=== PATIENT | female | born 1985 | race Caucasian/White ===

== ENCOUNTER 2017-01-01 02:26 | Inpatient (IN) ==
[~2017-01-01 02:26] MED LIST: *HR* Nalbuphine 20 MG/ML AMPUL IVP PRN; Famotidine 20 MG/2 ML VIAL IVP PRN; Lidocaine 1% 20 ML MDV INFILT PRN; Naloxone 0.4 MG/ML INJ IVP PRN
[2017-01-01] MEDS ORDERED: Ringers Solution, Lactated 1,000 ML IVC SCH (02:30)
--- NOTE | 2017-01-01 02:35 | OB/GYN History & Physical ---
Date of Encounter: 01/01/17 Time of Encounter: 02:31 Assessment and Plan (1) 40 weeks gestation of Current visit: Yes Status: Acute Admit to labor and delivery for labor Routine labor management GBS negative Intermittent monitoring after reactive NST if patient requests and per policy Patient may have nubain and/or epidural if requested for pain Anticipate vaginal delivery POC per consult with Dr Guevara. History of Present Illness Chief complaint: Contractions HPI: Ms. Zuniga is a 31 year old at 40 weeks and 3 days gestation that arrives to labor and delivery with c/o contractions every 2-3 minutes. She states she has not felt a gush of fluid. She states positive movement. She denies headaches, vision changes, epigastric pain, nausea/vomiting, and vaginal bleeding/discharge. She has had a normal course and is seen by the midwives. Her labs are as follows: GBS negative HIV nonreactive Treponema Pallidum Antibody Negative Rubella IgG Antibody positive Varicella IgG Antibody positive Hepatitis B Surface Antigen nonreactive Blood Type A positive with negative antibody screen. Past Med Surg Social Fam HX - Past Medical History Medical history: no medical history Psychiatric history: no psych history - Social History Smoking Status: Never smoker Alcohol use: none Drug use: none Obstetrical History - Pregnancies : 3 Para: 1 Term: 1 : 0 Ab's: 1 Livin [facility]ations and [facility]ies [facility] [History] 3 Allergy/AdvReac Type Severity Reaction Status Date / Time [facility] Allergy Rash Verified 01/01/17 02:19 pseudoephedrine [From [facility]] Allergy Rash Verified 01/01/17 02:19 Review of System OB All systems PM: reviewed and no additional remarkable complaints except as stated Exam - Constitutional Constitutional: well developed, well nourished, no acute distress, average body habitus - HEENT HEENT: Normocephaly, Mucus Membranes Moist - Neck Neck exam: full ROM - Lungs Respiratory exam: CTAB - Cardiovascular Cardiovascular exam: RRR, +S1, +S2 - Breasts Breast: bilateral: normal - Abdomen Abdomen: Present: bowel sounds normal, gravid, non tender - Extremities Extremities exam: normal capillary refill, normal inspection, radial pulses palpable and symmetrical Deep Tendon Reflex Grade: 1+ Diminished - Vulva Vulva: bilateral: normal - Vagina Vagina: Present: normal moisture - Cervix Dilation: 5 (5-6 per RN exam) Effacement: 90 Station: -1 - Uterus Uterus exam: Present: normal size, normal contour Results Result Diagrams: 01/01/17 02:39 All other labs normal. - VTE Reasons for not Prescribing Prophylaxis: Treatment not Indicated - Low risk for VTE
[2017-01-01 02:51] LABS: Basophils % 0.5 %; Eosinophils % 0.5 %; Hemoglobin 11.7 g/dL (11.5-15.4); Immature Granulocytes % 0.5 % (0-4); Lymphocytes # 1.4 K/mcL (0.6-4.6); Lymphocytes % 21.5 %; Mean Corpuscular HGB Conc 33.4 g/dL (31.6-35.5); Mean Corpuscular Hemoglobin 30.5 pg (28.0-33.3); Mean Corpuscular Volume 91.1 fL (83.0-100.0); Mean Platelet Volume 10.4 fL (9.4-12.4); Monocytes # 0.4 K/mcL (0.0-1.3); Monocytes % 6.6 %; Neutrophils # 4.5 K/mcL (1.6-8.9); Platelet Count 186 K/mcL (140-400); Red Blood Count 3.84 M/mcL (3.82-4.97); Red Cell Distribution Width 13.2 % (11.5-14.5); Segmented Neutrophils % 70.4 %
[2017-01-01 02:59] LABS: Amphetamine Screen,Urine Negative ng/mL (Cutoff=1000); Barbiturate Screen,Urine Negative ng/mL (Cutoff=200); Benzodiazepines Screen,Urine Negative ng/mL (Cutoff=200); Cannabinoid Screen,Urine Negative ng/mL (Cutoff = 50); Cocaine Screen,Urine Negative ng/mL (Cutoff= 300); Opiate Screen,Urine Negative ng/mL (Cutoff=300); Phencyclidine Screen,Urine Negative ng/mL (Cutoff=25)
[2017-01-01] MEDS ORDERED: Epidural Premix (fent/bupiv) 110 ML EP ONE (03:17)
--- NOTE | 2017-01-01 03:49 | Anesthesia Evaluation PreOp ---
Date of Encounter: 01/01/17 Time of Encounter: 03:46 - Past History Planned Operation: vaginal del, , term , spont Cardiac History: Denies any Significant Hx Pulmonary History: Denies Any Significant HX ARMATURE AND ROTOR WINDER History: Denies Any Significant HX Other Medical History: Denies Any Significant HX Anesthesia History: No Prior Anesthetic Complications (no family Hx), Past Anesthesia (previous epidural) : Yes (term) Alcohol Use: none Drug use: none Medications and Allergies Flintstones 01/01/17 [History] 3 Allergy/AdvReac Type Severity Reaction Status Date / Time Carbinoxamine [From [facility]] Allergy Rash Verified 01/01/17 02:19 pseudoephedrine [From [facility]] Allergy Rash Verified 01/01/17 02:19 Anesthesia Results - Labs 01/01/17 02:39 Anesthesia Exam - HEENT Pupil (Motor): Pupils equal Mallampati: II Teeth: Normal Oral Opening: Greater than 3 - ARMATURE AND ROTOR WINDER LOC: Oriented ARMATURE AND ROTOR WINDER Motor: Normal RUE, Normal LUE, Normal RLE, Normal LLE, Normal Face ARMATURE AND ROTOR WINDER Sensory: Normal: RUE, LUE, RLE, LLE, Face - Cardiac Rhythm: Regular Murmur: None - Pulmonary Breath Sounds: bilateral Clear Respiratory Effort: Symmetrical Anesthesia Assess/Plan ASA Score: 2 Modified Иван Scale for Level of Consciousness: Cooperative, oriented, and tranquil Anesthetic Plan: General, Regional (patient unsure about wanting regional anesthesia at this time.) Monitoring Plan: Standard Monitors Recovery Plan: PACU
--- NOTE | 2017-01-01 06:37 | OB Labor Progress Note ---
Date of Encounter: 01/01/17 Time of Encounter: 06:24 Labor Progress Note - Subjective Subjective: Patient in bed breathing through contractions. - Vital Signs Vital Signs: VSS - Cervix Cervix: 7-8/100/-1 BBOW midposition - Heart Tones Heart Tones: 130 with moderate variability and 15 x 15 accels with no decels - [place]: Contractions every 2-4 minutes - Plan Plan: Continue routine labor management Patient requests epidural prior to AROM Anticipate vaginal delivery
--- NOTE | 2017-01-01 07:01 | Anesthesia Procedures ---
Date of Encounter: 01/01/17 Time of Encounter: 06:43 Procedures: Anesthesia - Epidural/Spinal Patient ID/Chart reviewed: Yes Patient examined: Yes OB Eval: Gestational age: term OB Eval: : 2 OB Eval: Hx Para: 1 OB Eval: Dilated at (cm): 7 OB Eval: Contractions: Non-stressed pattern Consent Obtained: Yes Supplemental Oxygen: None/Room Air Site Prep: Aseptic Technique, Sterile prep and drape, 0.5% Chlorhexidine/Alcohol Patient position: upright Local Anesthetic: Lidocaine 1% Amount of Local Anesthetic used: 2 Touhy Needle Gauge: 18 Touhy Needle Depth (cm): 7 Catheter Depth at Skin (cm): 11 Test Dose (1.5% Lido + Epi): Volume given (mls): 3 Test Dose Result: Negative Loading Dose: Other: 12ml from solution Loading Dose Administered: Thru Catheter Infusion Med: 0.125% Bupivacaine w/ 2 mcg/ml Fentanyl Infusion Rate (mls/hr): [address]: Tegaderm, Tape Interspace Used: L3-L4 Loss of Resistance (KATERYNA): Yes (saline) Blood: No CSF: No Paresthesia: No Procedure: vss though out, FHR stable per RN's
[2017-01-01] MEDS ORDERED: Oxytocin 20 units/ LR 1000 mL 20 UNIT/1,000 ML BAG IVC ONE (07:43)
--- NOTE | 2017-01-01 07:45 | OB Labor Progress Note ---
Date of Encounter: 01/01/17 Time of Encounter: 07:41 Labor Progress Note - Subjective Subjective: Patient in resting comfortably in bed with epidural in place. - Vital Signs Vital Signs: VSS - Cervix Cervix: 8-9/100/0 BBOW - Heart Tones Heart Tones: 140's with moderate variability with 15 x 15 accels and no decels. - [place]le[place] Delevan: Contractions every 2-4 minutes palpate firm - Interventions Interventions: AROM for moderate amount of particulate meconium stained fluid. Patient and fetus tolerated well. After rupture cervix 9/100/0 - Plan Plan: Continue routine labor management GBS negative Anticipate vaginal delivery POC per consult with Dr Guevara.
[2017-01-01] MEDS ORDERED: Lidocaine 1% 20 ML MDV ONE (08:51)
--- NOTE | 2017-01-01 09:18 | OB/GYN Procedure Note ---
Delivery - Delivery Date: 01/01/17 Provider: Gladis Saucedo (Martha Clarke [facility]) Intrapartum events: meconium Delivery induction: none Delivery augmentation: rupture of membranes Delivery monitor: external FHT, external uterine Anesthesia: epidural Estimated Blood Loss: 300 - (s) A Delivery Date: 01/01/17 Delivery Time: 08:50 Presentation: vertex Position: CICI Route of delivery: Gender: Male Viability: Viable Pounds: 9 Ounces: 6 Weight Gram: 4.245 kg at 1 minute: 9 at 5 mins: 9 Shoulder Dystocia: not encountered Specimens collected: cord blood Placenta: spontaneous Cord: 3 umbilical vessels - Repair Episiotomy: none Laceration Description: Perineal - 2nd Degree - Complications Delivery complications: none Delivery comments: Called to LDR patient feeling contractions. Patient was complete and +2 station. Patient was placed in stirrups and prepped for vaginal delivery. Under maternal effort, viable male infant delivered spontaneously over 2nd degree laceration. Repaired with 3-0 Vicryl. [place] to mother's abdomen for drying and stimulation. Immediate lusty cry noted. Cord clamped and cut after pulsation ceased. Spontaneous delivery of intact placenta. EBL 300 mL. No shoulder dystocia or nuchal cord was encountered. Particulate meconium was noted with AROM. All counts complete. Mother and stable in room for 2 hour recovery. - Disposition Mom disposition: stable in LDR [place] disposition: stable in LDR
[2017-01-01] MEDS ORDERED: Oxytocin 20 units/ LR 1000 mL 20 UNIT/1,000 ML BAG IVC SCH (11:29)
[2017-01-01] MEDS ORDERED: Benzocaine/Menthol 56 GM AEROSOL SPRAY TP PRN (11:29)
[2017-01-01] MEDS ORDERED: *HR* HYDROcodone/Acet 5/325 mg TABLET PO PRN (11:29)
[2017-01-01] MEDS ORDERED: Lanolin 7 G OINT...G. TP PRN (11:29)
[2017-01-01] MEDS ORDERED: Acetaminophen 325 MG TABLET PO PRN (11:29)
[2017-01-01] MEDS: Ibuprofen 600 MG TABLET PO PRN (21:24)
[2017-01-02] MEDS: Ibuprofen 600 MG TABLET PO PRN (03:44)
[2017-01-02 08:06] VITALS: BP 107/67
[2017-01-02] MEDS ORDERED: Prenatal Vit/FA 1 EACH TABLET PO SCH (09:00)
--- NOTE | 2017-01-02 10:07 | Discharge Summary ---
Date of Encounter: 01/02/17 Time of Encounter: 10:05 - Discharge Diagnosis (1) Vaginal delivery Priority: Primary Status: Acute Comments: Pt meeting all milestones. Pain well managed on po pain medication. . desires discharge - Discharge Medications Prescriptions: Ibuprofen [Motrin] 600 mg PO Q6HR PRN #60 tablet PRN Reason: Cramping Docusate [Colace] 100 mg PO BID #60 capsule Home Medications: Flintstones 01/01/17 [History] Acetaminophen [Tylenol] 650 mg PO Q6HR PRN tablet 01/02/17 [Rx] Benzocaine/Menthol [place] [Dermoplast [place]] 1 appl TP QID PRN aerosol 01/02/17 [Rx] Docusate [Colace] 100 mg PO BID #60 capsule 01/02/17 [Rx] Ibuprofen [Motrin] 600 mg PO Q6HR PRN #60 tablet 01/02/17 [Rx] Lanolin [Lansinoh] 1 appl TP TID PRN oint...g. 01/02/17 [Rx] Vit/FA 1 each PO DAILY tablet 01/02/17 [Rx] Allergies/Adverse Reactions: 3 Allergy/AdvReac Type Severity Reaction Status Date / Time Carbinoxamine [From [facility]] Allergy Rash Verified 01/01/17 02:19 pseudoephedrine [From [facility]] Allergy Rash Verified 01/01/17 02:19 Data Procedures and tests throughout hospitalization: Laboratory Tests 01/01/17 01/01/17 02:39 02:39 WBC 6.4 RBC 3.84 Hgb 11.7 Hct 35.0 L MCV 91.1 MCH 30.5 MCHC 33.4 RDW 13.2 Plt Count 186 MPV 10.4 Immature Gran % 0.5 Seg Neutrophils % 70.4 Lymphocytes % 21.5 Monocytes % 6.6 Eosinophils % 0.5 Basophils % 0.5 Neutrophils # 4.5 Lymphocytes # 1.4 Monocytes # 0.4 Eosinophils # 0.0 Basophils # 0.0 Urine Opiates Screen Negative Ur Barbiturates Screen Negative Ur Phencyclidine Scrn Negative Ur Amphetamines Screen Negative U Benzodiazepines Scrn Negative Urine Cocaine Screen Negative U Marijuana (THC) Screen Negative Date of admission: 01/01/17 02:26 Consults: 01/01/17 11:29 Consult to Academic Affairs Specialist [CONS] Routine Comment: Vaginal delivery, consult needed Discharging clinician: Dayanna Hager Anticipated date of discharge: 01/02/17 - Patient Status Disposition: Transfer Inpatient Rehab Fac Condition: Good Functional capacity at discharge: independent ambulation Overall status at discharge: patient is back to baseline - Discharge Instructions - Diet and Activity Activity: resume usual activities as tolerated Diet: regular diet Hospital Course Reason for admission: active labor, IUP - Delivery: Episiotomy: none Laceration: 2nd degree Other procedures: none complications: none Discharge diagnosis: IUP at term delivered baby: male Hospital course: Delivery - Delivery Date: 01/01/17 Provider: Gladis Saucedo, [facility]) Intrapartum events: meconium Delivery induction: none Delivery augmentation: rupture of membranes Delivery monitor: external FHT, external uterine Anesthesia: epidural Estimated Blood Loss: 300 - Infant (s) Infant A Infant Delivery Date: 01/01/17 Infant Delivery Time: 08:50 Presentation: vertex Position: CICI Route of delivery: Gender: Male Viability: Viable Pounds: 9 Ounces: 6 Weight Gram: 4.245 kg at 1 minute: 9 at 5 mins: 9 Shoulder Dystocia: not encountered Specimens collected: cord blood Placenta: spontaneous Cord: 3 umbilical vessels - Repair Episiotomy: none Laceration Description: Perineal - 2nd Degree - Complications Delivery complications: none Delivery comments: Called to LDR patient feeling contractions. Patient was complete and +2 station. Patient was placed in stirrups and prepped for vaginal delivery. Under maternal effort, viable male infant delivered spontaneously over 2nd degree laceration. Repaired with 3-0 Vicryl. [place] to mother's abdomen for drying and stimulation. Immediate lusty cry noted. Cord clamped and cut after pulsation ceased. Spontaneous delivery of intact placenta. EBL 300 mL. No shoulder dystocia or nuchal cord was encountered. Particulate meconium was noted with AROM. All counts complete. Mother and infant stable in room for 2 hour recovery. - Disposition Mom disposition: stable in LDR disposition: stable in LDR Time Attestation: Total time spent providing and/or coordinating discharge services: Time Spent: Less than 30 minutes Exam - Constitutional Vitals: Temp Pulse Resp BP Pulse Ox 97.7 F 58 12 107/67 99 01/02/17 08:04 01/02/17 08:04 01/02/17 08:04 01/02/17 08:04 01/02/17 08:04 General appearance IM: A&O X 3 - Respiratory Respiratory exam: Present: CTAB - Cardiovascular Cardiovascular exam IM: Present: RRR - GI/Abdominal GI/Abdominal exam IM: soft - Uterine Tone: Firm Uterus Position: At Umbilicus - Extremities Exam Extremities exam IM: Present: normal capillary refill, normal inspection - Neurological Exam Neurological exam: normal gait, oriented X3 - Psychiatric Additional comments: Reports good mood.
== END 2017-01-02 11:19 | DRG 775 ==
LOC: 1NENULAB → 1NENUOBS 11:18
PROVIDERS: ADMIT Obstetrics & Gynecology; ATTEND Obstetrics & Gynecology

== ENCOUNTER 2018-10-29 15:02 | Inpatient (IN) ==
[~2018-10-29 15:02] MED LIST changes: -*HR* Nalbuphine 20 MG/ML AMPUL IVP PRN; +Epidural Premix (fent/bupiv) 110 ML EP ONE; -Famotidine 20 MG/2 ML VIAL IVP PRN; -Lidocaine 1% 20 ML MDV INFILT PRN; -Naloxone 0.4 MG/ML INJ IVP PRN
[2018-10-29] MEDS ORDERED: *HR* Nalbuphine 10 MG/ML AMPUL IVP PRN (15:11)
[2018-10-29] MEDS ORDERED: Ondansetron 4 MG/2 ML VIAL IVP PRN (15:11)
[2018-10-29] MEDS ORDERED: Naloxone 0.4 MG/ML INJ IVP PRN (15:11)
[2018-10-29] MEDS ORDERED: Famotidine 20 MG/2 ML VIAL IVP PRN (15:11)
[2018-10-29] MEDS ORDERED: miSOPROStol 25 MCG TABLET PO PRN (15:11)
[2018-10-29] MEDS ORDERED: Metoclopramide 10 MG/2 ML VIAL IVP PRN (15:11)
[2018-10-29] MEDS ORDERED: Oxytocin 20 units/ LR 1000 mL 20 UNIT/1,000 ML BAG IVC SCH (15:15)
[2018-10-29] MEDS ORDERED: Ringers Solution, Lactated 1,000 ML IVC SCH (15:15)
--- NOTE | 2018-10-29 15:23 | OB/GYN History & Physical ---
Date of Encounter: 10/29/18 Time of Encounter: 15:22 Assessment and Plan (1) 40 weeks gestation of Current visit: Yes Status: Acute Admit for IOL at 40w3d for oligohydramnios (2) Oligohydramnios Current visit: Yes Status: Acute at 40 weeks, 3 days. Mom and baby appear healthy, normal for gestational age, MARCE of 4.8 Will induce today Anticipate Qualifiers: Trimester: third trimester Qualified Code(s): O41.03X0 - Oligohydramnios, third trimester, not applicable or unspecified (3) Multiparity Current visit: Yes Status: Acute Expected management of current as defined in plan for oligohydramnios (4) History of spontaneous , currently Current visit: Yes Status: Acute Patient's partner plans to have a vasectomy in the near future (5) NST (non-stress test) reactive Current visit: Yes Status: Acute FHR 145 bpm, moderate variability, +15x15 accels, no decels. History of Present Illness Chief complaint: Oligohydramnios HPI: Ms. Zuniga is a 33 year old female with an estimated gestational age of 40 weeks 3 days who presented to the office today and was found to have an MARCE of 4.8, and was therefore sent over to L&D for induction of labor secondary to oligohydramnios. She reports good movement, scant vaginal bleeding after having her membranes stripped, and no leakage of fluids, denies rupture of membranes. She reports she was dilated to 3 and 70% effaced in the office today. She denies any significant past medical history, past surgical history, family history, or social history, stating she is a never smoker does not drink and does not do drugs. The only medication she takes are her vitamins and an iron supplement. Her only significant allergy is to a cough syrup when she was a child. Blood type A+ GBS negative HbSAG negative T. Pall negative Rubella Immune Varicella Immune Past Med Surg Social Fam HX - Past Medical History Medical history: no medical history Psychiatric history: no psych history - Past Surgical History Additional surgical history: wisdom teeth extraction - Social History Smoking Status: Never smoker Alcohol use: none Drug use: none - Family History Mother Hx Family Cardiac Disorders: No Hx Family Respiratory Disorders: No Hx Family Cancer: No Hx Family GI Disorders: No Hx Family Endocrine Disorder: No Hx Family Neuromuscular Disorders: No Hx Family Neurologic Disorders: No Hx Family HEENT Disorders: No Hx Family Autoimmune Disorders: No Obstetrical History - Pregnancies : 4 Para: 2 Term: 2 : 0 Ab's: 1 Livin - History/Complications History/Complications: Denies Medications and Allergies Flintstones 1 tab PO DAILY 01/01/17 [History] Allergy/AdvReac Type Severity Reaction Status Date / Time Carbinoxamine [From [facility]] Allergy Rash Verified 01/01/17 02:19 pseudoephedrine [From [facility]] Allergy Rash Verified 01/01/17 02:19 Review of System OB - Constitutional Constitutional ROS IM: no chills, no headache(s) - Nose, mouth, and throat Nose, mouth and throat: no abnormal hearing, no dizziness, no headache(s), no vertigo - Cardiovascular Cardiovascular: no chest pain, no dyspnea, no palpitations - Respiratory Respiratory: no cough, no dyspnea - Gastrointestinal Gastrointestinal: no abdominal pain, no change in stool character, no constipation, no diarrhea, no nausea, no vomiting - Genitourinary Genitourinary: as per HPI, no urinary frequency, no urinary urgency - Muscloskeletal Musculoskeletal: no joint swelling - Neurological Nerological: no headache(s), no numbness, no paresthesias, no syncope, no tingling, no other visual disturbances Exam - Constitutional Constitutional: well developed, well nourished, no acute distress, average body habitus - HEENT HEENT: Normocephaly, Mucus Membranes Moist - Neck Neck exam: full ROM - Lungs Respiratory exam: CTAB - Cardiovascular Cardiovascular exam: RRR, +S1, +S2 - Abdomen Abdomen: Present: bowel sounds normal, gravid, non tender - Extremities Extremities exam: full ROM, normal inspection - Vulva Vulva: bilateral: normal - Vagina Vagina: Present: normal moisture - Cervix Dilation: 4 Effacement: 80 Station: -2 - Uterus Uterus exam: Present: normal size (For gestational age), normal contour. A bsent: tender - Adnexa Adnexa: bilateral: normal - Anus/Rectum Anus/Rectum: Present: normal perianal skin Results Result Diagrams: 10/29/18 15:59 All other labs normal. - VTE Reasons for not Prescribing Prophylaxis: Treatment not Indicated - Low risk for VTE
[2018-10-29 16:29] LABS: Basophils % 0.4 %; Eosinophils # 0.1 K/mcL (0.0-0.6); Eosinophils % 0.8 %; Hematocrit 38.2 % (35.3-44.9); Hemoglobin 12.9 g/dL (11.5-15.4); Lymphocytes # 1.3 K/mcL (0.6-4.6); Lymphocytes % 17.2 %; Mean Corpuscular HGB Conc 33.8 g/dL (31.6-35.5); Mean Corpuscular Hemoglobin 31.1 pg (28.0-33.3); Mean Platelet Volume 10.4 fL (9.4-12.4); Monocytes # 0.4 K/mcL (0.0-1.3); Monocytes % 5.3 %; Neutrophils # 5.5 K/mcL (1.6-8.9); Platelet Count 199 K/mcL (140-400); Red Blood Count 4.15 M/mcL (3.82-4.97); Red Cell Distribution Width 14.2 % (11.5-14.5); Segmented Neutrophils % 75.3 %; White Blood Count 7.3 K/mcL (4.3-11.1)
[2018-10-29 16:37] LABS: Amphetamine Screen,Urine Negative ng/mL (Cutoff=1000); Barbiturate Screen,Urine Negative ng/mL (Cutoff=200); Benzodiazepines Screen,Urine Negative ng/mL (Cutoff=200); Cannabinoid Screen,Urine Negative ng/mL (Cutoff = 50); Cocaine Screen,Urine Negative ng/mL (Cutoff= 300); Opiate Screen,Urine Negative ng/mL (Cutoff=300); Phencyclidine Screen,Urine Negative ng/mL (Cutoff=25)
--- NOTE | 2018-10-29 18:58 | OB Labor Progress Note ---
Date of Encounter: 10/29/18 Time of Encounter: 18:56 Labor Progress Note - Subjective Subjective: Patient coping well with contractions. Currently utilizing the birthing ball for comfort. - Cervix Cervix: 4/80/-2 - Heart Tones Heart Tones: FHR 140 bpm, moderate variability, +15x15 accels, no decels. - Venturia Venturia: q 2 minutes - Interventions Interventions: SVE Discussed augmentation options of AROM or Pitocin with patient and she would like to proceed with AROM at this time. AROM completed for moderate amount of clear fluid. - Plan Plan: Expectant management Epidural or IV pain medication when patient requests Anticipate
[2018-10-29] MEDS ORDERED: Bupivacaine-MPF 0.25% 10 ML VIAL ONE (22:08)
[2018-10-29] MEDS ORDERED: *HR* FentaNYL (PF) 100 MCG/2 ML VIAL ONE (22:08)
[2018-10-29] MEDS ORDERED: Epidural Premix (fent/bupiv) 110 ML EP ONE (22:09)
[2018-10-29] MEDS ORDERED: Epidural Premix (fent/bupiv) 110 ML BAG EP ONE (22:09)
--- NOTE | 2018-10-29 22:55 | Anesthesia Evaluation PreOp ---
Date of Encounter: 10/29/18 Time of Encounter: 22:05 - Past History Planned Operation: labor epidural Cardiac History: Denies any Significant Hx Pulmonary History: Denies Any Significant HX CLINICAL SPECIALIST VASCULAR History: Denies Any Significant HX Other Medical History: Denies Any Significant HX Anesthesia History: No Prior Anesthetic Complications, Past Anesthesia (wisdom teeth, no problems. Epidurals x2 without problems.) : Yes Alcohol Use: none Drug use: none Medications and Allergies Flintstones 1 tab PO DAILY 01/01/17 [History] Allergy/AdvReac Type Severity Reaction Status Date / Time Carbinoxamine [From [facility]] Allergy Rash Verified 01/01/17 02:19 pseudoephedrine [From [facility]] Allergy Rash Verified 01/01/17 02:19 - Meds/Allergy Pre-op Review Medications Reviewed: Yes Allergies Reviewed: Yes Beta Blockers on Current Med List: No Anesthesia Results - Labs 10/29/18 15:59 Anesthesia Exam 119/77, 94, 20. FHTs 140s. Height: 5'6" NPO (# of Hours): >9 Pain Scale: 6 Pain Scale Used: Numeric (1 - 10) - HEENT Pupil (Motor): Pupils equal Mallampati: II Teeth: Normal - CLINICAL SPECIALIST VASCULAR LOC: Oriented CLINICAL SPECIALIST VASCULAR Motor: Normal RUE, Normal LUE, Normal RLE, Normal LLE, Normal Face CLINICAL SPECIALIST VASCULAR Sensory: Normal: RUE, LUE, RLE, LLE, Face - Cardiac Rhythm: Regular - Pulmonary Breath Sounds: bilateral Clear Respiratory Effort: Symmetrical Anesthesia Assess/Plan ASA Score: 2 Level of consciousness: Cooperative, Oriented, Tranquil Anesthetic Plan: Epidural Monitoring Plan: Standard Monitors
--- NOTE | 2018-10-29 22:59 | Anesthesia Procedures ---
Date of Encounter: 10/29/18 Time of Encounter: 22:12 Procedures: Anesthesia - Epidural/Spinal Patient ID/Chart reviewed: Yes Patient examined: Yes OB Eval: Gestational age: 39 OB Eval: : 4 OB Eval: Hx Para: 3 OB Eval: Dilated at (cm): 4 OB Eval: Contractions: Non-stressed pattern Consent Obtained: Yes Supplemental Oxygen: None/Room Air Site Prep: Aseptic Technique, Sterile prep and drape, 0.5% Chlorhexidine/Alcohol Patient position: upright Local Anesthetic: Lidocaine 1% Amount of Local Anesthetic used: 3 Touhy Needle Gauge: 18 Touhy Needle Depth (cm): 5 Catheter Depth at Skin (cm): 11 Test Dose (1.5% Lido + Epi): Volume given (mls): 3 Test Dose Result: Negative Loading Dose: 0.25% Marcaine (mls): 5 Loading Dose: Fentanyl (mcg): 100 Loading Dose Administered: Thru Catheter Infusion Med: 0.125% Bupivacaine w/ 2 mcg/ml Fentanyl Infusion Rate (mls/hr): [address]: Tegaderm, Tape Interspace Used: L3-L4 Loss of Resistance (KATERYNA): Yes Blood: No CSF: No Paresthesia: No Vitals + FHT's: Vital Signs Time 2212 2225 2230 2235 2240 BP 119/77 128/78 116/55 108/56 109/57 Pulse 94 81 64 72 65 FHTs 140 140 140 140 140
[2018-10-29] MEDS ORDERED: EPHEDrine 50 MG/ML VIAL ONE (23:02)
--- NOTE | 2018-10-30 01:20 | OB Labor Progress Note ---
Date of Encounter: 10/30/18 Time of Encounter: 01:19 Labor Progress Note - Subjective Subjective: Patient resting comfortably with epidural in place. - Vital Signs Vital Signs: WNL - Cervix Cervix: 4-5cm - Heart Tones Heart Tones: FHR 145 bpm, moderate variability, +15x15 accels, occasional early decels. - [place]: Q 6-8 minutes - Interventions Interventions: SVE Frequent position change with peanut ball - Plan Plan: Begin Pitocin augmentation to increase contraction frequency Continue frequent repositioning Anticipate
--- NOTE | 2018-10-30 05:21 | OB/GYN Procedure Note ---
Delivery - Delivery Date: 10/30/18 Provider: Oanh Clarke Intrapartum events: none Delivery induction: AROM, oxytocin Delivery monitor: external FHT, external uterine Anesthesia: epidural Quantitated Blood Loss: 100 - Infant (s) Infant A Infant Delivery Date: 10/30/18 Infant Delivery Time: 04:43 Presentation: vertex Position: CICI Route of delivery: Gender: Male Viability: Viable Pounds: 8 Ounces: 14 at 1 minute: 9 at 5 mins: 9 Shoulder Dystocia: not encountered Specimens collected: cord blood Placenta: spontaneous Cord: 3 umbilical vessels - Repair Episiotomy: none Laceration Description: Perineal - 2nd Degree - Complications Delivery complications: none Delivery comments: Called to room for delivery. I was gowned and gloved and together with Elliot Gamez DO PGY1 spontaneously delivered a viable male infant over second-degree perineal laceration, repaired with a 3-0 Vicryl in the usual fashion. Infant placed on maternal abdomen for drying and stimulation. Cord clamped and cut af ter pulsation ceased. Spontaneous delivery of intact placenta, EBL 100 mL's. No nuchal cord, shoulder dystocia, or meconium encountered. Mother and in kangaroo care for 2 hour recovery. - Disposition Mom disposition: stable in LDR disposition: stable in LDR
[2018-10-30] MEDS ORDERED: *HR* HYDROcodone/Acet 5/325 mg TABLET PO PRN (08:07)
[2018-10-30] MEDS ORDERED: Lanolin 7 G OINT...G. TP PRN (08:07)
[2018-10-30] MEDS ORDERED: Benzocaine/Menthol 56 GM AEROSOL SPRAY TP PRN (08:07)
[2018-10-30] MEDS ORDERED: Oxytocin 20 units/ LR 1000 mL 20 UNIT/1,000 ML BAG IVC SCH (08:07)
[2018-10-30] MEDS ORDERED: Acetaminophen 325 MG TABLET PO PRN (08:07)
[2018-10-30] MEDS: Ibuprofen 600 MG TABLET PO PRN ×2 (09:05→17:43)
[2018-10-30] MEDS: Prenatal Vit/FA 1 EACH TABLET PO SCH (09:05)
[2018-10-31] MEDS: Ibuprofen 600 MG TABLET PO PRN (04:45)
[2018-10-31] MEDS: Prenatal Vit/FA 1 EACH TABLET PO SCH (08:24)
--- NOTE | 2018-10-31 08:30 | Discharge Summary ---
Date of Encounter: 10/31/18 Time of Encounter: 08:26 - Discharge Diagnosis (1) Vaginal delivery Priority: Primary Status: Acute Comments: Patient meeting day one milestones. Pain well-controlled with prescribed medications. Voiding without difficulty, tolerating regular diet, bleeding light. No bowel movement yet. Anticipate discharge today (2) Breast feeding status of mother Priority: Secondary Status: Acute Comments: support as needed. We will provide breast pump prescription (3) Second degree perineal laceration Priority: Secondary Status: Acute Comments: Motrin, Dermoplast, ice packs as needed for discomfort. - Discharge Medications Prescriptions: New Breast Pump [BREAST PUMP] 1 each .ROUTE AD #1 each Docusate [Colace] 100 mg PO BID capsule Benzocaine/Menthol [place] [Dermoplast [place]] 1 appl TP QID PRN aerosol PRN Reason: See Comments Lanolin [Lansinoh] 1 appl TP TID PRN oint...g. PRN Reason: Sore Nipples Ibuprofen [Motrin] 600 mg PO Q6HR PRN #60 tablet PRN Reason: Cramping Acetaminophen [Tylenol] 650 mg PO Q6HR PRN tablet PRN Reason: Mild Pain Continued [place] 1 tab PO DAILY Home Medications: [place] 1 tab PO DAILY 01/01/17 [History] Acetaminophen [Tylenol] 650 mg PO Q6HR PRN tablet 10/31/18 [Rx] Benzocaine/Menthol [place] [Dermoplast [place]] 1 appl TP QID PRN aerosol 10/31/18 [Rx] Breast Pump [BREAST PUMP] 1 each .ROUTE AD #1 each 10/31/18 [Rx] Docusate [Colace] 100 mg PO BID capsule 10/31/18 [Rx] Ibuprofen [Motrin] 600 mg PO Q6HR PRN #60 tablet 10/31/18 [Rx] Lanolin [Lansinoh] 1 appl TP TID PRN oint...g. 10/31/18 [Rx] Allergies/Adverse Reactions: Allergy/AdvReac Type Severity Reaction Status Date / Time Carbinoxamine [From [facility]] Allergy Rash Verified 01/01/17 02:19 pseudoephedrine [From [facility]] Allergy Rash Verified 01/01/17 02:19 Data Procedures and tests throughout hospitalization: Laboratory Tests 10/29/18 10/29/18 15:53 15:59 WBC 7.3 RBC 4.15 Hgb 12.9 Hct 38.2 MCV 92.0 MCH 31.1 MCHC 33.8 RDW 14.2 Plt Count 199 MPV 10.4 Immature Gran % 1.0 Seg Neutrophils % 75.3 Lymphocytes % 17.2 Monocytes % 5.3 Eosinophils % 0.8 Basophils % 0.4 Neutrophils # 5.5 Lymphocytes # 1.3 Monocytes # 0.4 Eosinophils # 0.1 Basophils # 0.0 Urine Opiates Screen Negative Ur Buprenorphine Scrn Negative Ur Barbiturates Screen Negative Ur Phencyclidine Scrn Negative Ur Amphetamines Screen Negative U Benzodiazepines Scrn Negative Urine Cocaine Screen Negative U Marijuana (THC) Screen Negative Ur Drug Screen Interp See Below Date of admission: 10/29/18 15:02 Primary care physician: Erik Hung DO Consults: 10/30/18 08:07 Consult to Sample Paster [CONS] Routine Comment: Vaginal delivery, consult needed Discharging clinician: Oanh Clarke Anticipated date of discharge: 10/31/18 - Patient Status Disposition: Home, Self-Care Condition: Good Functional capacity at discharge: independent ambulation Overall status at discharge: patient is progressing back to baseline - Discharge Instructions Follow Up With: Lucio Hung DO [Primary Care Provider] - - Diet and Activity Activity: resume usual activities as tolerated Diet: regular diet Hospital Course Reason for admission: induction of labor, IUP at term Delivery: Episiotomy: none Laceration: 2nd degree Other procedures: none complications: perineal laceration Discharge diagnosis: IUP at term delivered White baby: male Hospital course: Delivery Date: 10/30/18 Provider: Oanh Clarke Intrapartum events: none Delivery induction: AROM, oxytocin Delivery monitor: external FHT, external uterine Anesthesia: epidural Quantitated Blood Loss: 100 - (s) Infant A Delivery Date: 10/30/18 Delivery Time: 04:43 Presentation: vertex Position: CICI Route of delivery: Gender: Male Viability: Viable Pounds: 8 Ounces: 14 at 1 minute: 9 at 5 mins: 9 Shoulder Dystocia: not encountered Specimens collected: cord blood Placenta: spontaneous Cord: 3 umbilical vessels - Repair Episiotomy: none Laceration Description: Perineal - 2nd Degree - Complications Delivery complications: none Delivery comments: Called to room for delivery. I was gowned and gloved and together with Elliot Gamez DO PGY1 spontaneously delivered a viable male over second-degree perineal laceration, repaired with a 3-0 Vicryl in the usual fashion. placed on maternal abdomen for drying and stimulation. Cord clamped and cut after pulsation ceased. Spontaneous delivery of intact placenta, EBL 100 mL's. No nuchal cord, shoulder dystocia, or meconium encountered. Mother and infant in kangaroo care for 2 hour recovery. - Disposition Mom disposition: stable in LDR disposition: stable in LDR Time Attestation: Total time spent providing and/or coordinating discharge services: Time Spent: Less than 30 minutes Exam - Constitutional Vitals: Temp Pulse Resp BP Pulse Ox 97.9 F 66 16 99/60 98 10/30/18 19:45 10/30/18 19:45 10/30/18 19:45 10/30/18 19:45 10/30/18 19:45 General appearance IM: A&O X 3, pleasant, no acute distress, answers questions appropriately - Respiratory Respiratory exam: Present: CTAB. Absent: respiratory distress - Cardiovascular Cardiovascular exam IM: Present: RRR, +S1, +S2. Absent: irregular rhythm - GI/Abdominal GI/Abdominal exam IM: normal bowel sounds, soft - Rectal Rectal exam: deferred - External exam: normal external exam Uterine Tone: Firm Uterus Position: 1 Finger Below Umbilicus, Midline - Extremities Exam Extremities exam IM: Present: full ROM, normal capillary refill, normal inspection. Absent: calf tenderness - Neurological Exam Neurological exam: alert, normal gait, oriented X3
[2018-10-31 09:12] VITALS: BP 93/61
== END 2018-10-31 09:55 | disposition home or self-care (01) | DRG 807 ==
LOC: 1NENULAB 15:02 → 1NENUOBS 10-30 08:05
PROVIDERS: ADMIT Registered Nurse; ATTEND Registered Nurse